=== PATIENT | female | born 1945 | race Caucasian/White ===

== ENCOUNTER → 2017-03-08 | Outpatient (CLI) | payer OTHER ==
[~2017-03-08] MED LIST: ACCOLATE10 MG PO; ACETAMINOPHEN-1 EAC3 PO; ALEVE220 M1 PO; ALPRAZOLAM ER1 MG PO; AMARYL2 MG PO; AMBIEN CR 6.26.25 MG PO; CALCIUM 600 +1 EAC8 PO; CRESTOR10 MG PO; FLAXSEED OIL1000 M2 PO; GLUCOPHAGE1000 MG PO; KLOR-CON 10 ER10 MEQ PO; LEVOTHYROXIN0.112 M1 PO; LISINOPRIL10 MG PO; MULTIVITAMINS PO; NORVASC10 MG PO; PCCA GELATIN BAS1 GM PO; RESTORIL15 MG PO; VENTOLIN HFA 1818 GM INH; VITAMIN D1000 UNI1 PO; VITCB500GO PO
== END ==
LOC: RAD 12-21 16:40
DX: Z12.31 Encounter for screening mammogram for malignant neoplasm of breast (principal)

== ENCOUNTER → 2018-03-09 | Outpatient (CLI) | payer OTHER | LOC: RAD 03:56 | DX: Z12.31 Encounter for screening mammogram for malignant neoplasm of breast (principal) ==

== ENCOUNTER → 2019-03-27 | Outpatient (CLI) | payer OTHER | LOC: RAD 01:14 | DX: Z12.31 Encounter for screening mammogram for malignant neoplasm of breast (principal) ==

== ENCOUNTER → 2020-07-22 | Outpatient (CLI) | payer OTHER | LOC: BC 09:16 → RAD 11:43 → BC 13:49 | PROVIDERS: ATTEND Internal Medicine Endocrinology, Diabetes & Metabolism | DX: Z12.31 Encounter for screening mammogram for malignant neoplasm of breast (principal) ==

== ENCOUNTER → 2021-07-21 | Outpatient (CLI) | payer OTHER | LOC: RAD 11:53 | PROVIDERS: ATTEND Orthopaedic Surgery Adult Reconstructive Orthopaedic Surgery | DX: Z12.31 Encounter for screening mammogram for malignant neoplasm of breast (principal); N64.89 Other specified disorders of breast ==